=== PATIENT | male | born 1960 | race Caucasian/White ===

== ENCOUNTER 2017-06-03 01:50 | Emergency (ER) | payer OTHER ==
[~2017-06-03] VITALS: Ht 188 cm; Wt 106.1 kg
[~2017-06-03 01:50] MED LIST: CHEWABLE-VITE1 EACH PO; MULTIVITAMIN1 EAC2 PO; NAPROSYN500 MG PO; OMEPRAZOLE40 M1 PO; PERCOCET 5/31 TABLET PO; PRILOSEC40 MG PO; ULTRAM50 MG PO
[2017-06-03] MEDS ORDERED: MOTRIN800 MG PO (03:56)
[2017-06-03 04:35] VITALS: BP 135/83
== END 2017-06-03 04:51 | disposition home or self-care (01) ==
LOC: EME 01:50
DX: S80.02XA Contusion of left knee, initial encounter (principal); W20.8XXA Other cause of strike by thrown, projected or falling object, initial encounter; W18.39XA Other fall on same level, initial encounter; Y92.512 Supermarket, store or market as the place of occurrence of the external cause; Y99.0 Civilian activity done for income or pay; F17.200 Nicotine dependence, unspecified, uncomplicated
CPT/HCPCS: 73564; 99281; 99283